=== PATIENT | male | born 1985 | race African-American/Black ===

== ENCOUNTER 2017-10-31 23:07 | Emergency (ER) | payer OTHER ==
[~2017-10-31] VITALS: Ht 175.3 cm; Wt 95.3 kg
[2017-11-01] VITALS: BP 157/76
[2017-11-01 01:03] LABS: APPEARANCE,URINE CLEAR (CLEAR); BILIRUBIN,URINE NEGATIVE (NEGATIVE); BLOOD, URINE NEGATIVE Ery/uL (NEGATIVE); COLOR,URINE YELLOW (YELLOW); KETONES,URINE NEGATIVE (NEGATIVE); LEUKOCYTE ESTERASE ,URINE NEGATIVE (NEGATIVE); NITRITE, URINE NEGATIVE (NEGATIVE); PH,URINE 6.5 (5.0-8.0); PROTEIN,URINE NEGATIVE (NEGATIVE); UGLUCOSE NEGATIVE (NEGATIVE); UROBILINOGEN,URINE 0.2 EU/dL (0.2)
[2017-11-01] MEDS ORDERED: CEFTRIAXONE 1 G VIAL ONE (03:10)
[2017-11-01] MEDS ORDERED: LIDOCAINE 1% INJ 50 ML MDV IJ ONE (03:11)
[2017-11-01] MEDS ORDERED: LAMIVUDINE/ZIDOVUDINE 150-300 1 TAB TABLET ONE (03:11)
[2017-11-01] MEDS ORDERED: AZITHROMYCIN 250 MG TABLET ONE (03:11)
[2017-11-01] MEDS: AZITHROMYCIN 250 MG TABLET PO ONE (03:17)
[2017-11-01] MEDS: LAMIVUDINE/ZIDOVUDINE 150-300 1 TAB TABLET PO ONE (03:17)
[2017-11-01] MEDS: CEFTRIAXONE 1 G VIAL IM ONE (03:25)
== END 2017-11-01 03:27 | disposition home or self-care (01) ==
LOC: ER 23:15
DX: Z00.8 Encounter for other general examination (principal); Z88.0 Allergy status to penicillin
CPT/HCPCS: 81000-TC; 87491; 87591; A4606; J0696; J3490; Z7610

== ENCOUNTER 2018-07-20 13:23 | Emergency (ER) | payer OTHER ==
[~2018-07-20] VITALS: Ht 180.3 cm; Wt 108.9 kg
[2018-07-20 13:30] VITALS: BP 129/80
== END 2018-07-20 14:20 | disposition home or self-care (01) ==
LOC: ER 13:26
DX: M54.2 Cervicalgia (principal); R51 Headache; Z88.0 Allergy status to penicillin; V49.49XA Driver injured in collision with other motor vehicles in traffic accident, initial encounter; Y93.89 Activity, other specified; Y92.413 State road as the place of occurrence of the external cause; Y99.8 Other external cause status